=== PATIENT | male | born 1995 | race Caucasian/White ===

== ENCOUNTER 2016-10-27 18:54 | Emergency (ER) | payer BC ==
[~2016-10-27] VITALS: Ht 180.3 cm; Wt 122.6 kg
[~2016-10-27 18:54] MED LIST: CLR10 PO
[2016-10-27 19:00] VITALS: Ht 180.3 cm; Wt 122.6 kg
[2016-10-27] MEDS ORDERED: FAMOTIDINE 20MG/102 ML D5W IV STA (19:11)
[2016-10-27] MEDS ORDERED: SODIUM CHLORIDE 0.9% 1000ML 1,000 ML IV STA (19:11)
[2016-10-27] MEDS ORDERED: DiphenhydrAMINE HCL 50 MG/ML VIAL IV STA (19:11)
[2016-10-27] MEDS ORDERED: DEXAMETHASONE SOD INJ 10 MG/ML VIAL IV ONE (19:15)
[2016-10-27] MEDS ORDERED: PRED50TA PO (19:41)
[2016-10-27] MEDS ORDERED: EPP3/2 IM (19:41)
--- NOTE | 2016-10-27 19:41 | EMERGENCY ROOM VISIT NOTE ---
History Report prepared by Reggie: Demarco Bnejamin Under the Supervision of: Dr. Gerson Seth M.D. First contact with patient: 19:03 Chief Complaint: ALLERGIC REACTION Stated Complaint: THROAT WAS CLOSING, USED EPI PEN Nursing Triage Summary: on immuno therapy at home usually has an allergic reaction to it. at 1837 he used his epi pen because he had throat tightness. he callled his mom and she sent him here denies any c/o except for leg pain at injection site. History of Present Illness The patient is a 21 year old male who presents to the Emergency Room with complaints of a sudden allergic reaction beginning thirty minutes prior to arrival. He associates swelling to his lips, resolved throat tightness, and resolved hives with today's symptoms. The patient states he is on immunotherapy for seasonal allergies. He notes he has been on the three drops under the tongue regimen for nine months. He notes he normally has mild allergic reaction to the drops, and he usually takes Benadryl and goes to bed. However, the patient states he administered his EpiPen at 1837 today. He denies using his EpiPen in the past. The patient denies being on steroids. Source of History: patient Onset: 30 minutes REHAB SPECIALIST Position: other (global) Quality: other (allergic reaction) Timing: other (sudden) Note: Associated symptoms: swelling to his lips, resolved throat tightness, and resolved hives Review of Systems See HPI for pertinent positives & negatives. A total of 10 systems reviewed and were otherwise negative. Past Medical & Surgical Surgical Problems: (1) H/O left knee surgery Family History Diabetes mellitus Kidney stones Social History Smoking Status: Never Smoker Alcohol Use: occasionally Marital Status: single Housing Status: lives with roommate Occupation Status: [employer] student Current/Historical Medications Scheduled Epinephrine (Epipen 2-Panda), 1 PKT IM BLANK Prednisone (Prednisone), 50 MG PO DAILY Scheduled PRN Loratadine (Claritin), 10 MG PO DAILY PRN for ALLERGIES Allergies Coded Allergies: No Known Allergies (Unverified , 10/27/16) Physical Exam Vital Signs Date Time Temp Pulse Resp B/P Pulse Ox O2 Delivery O2 Flow Rate FiO2 10/27/16 21:00 36.7 79 18 134/71 97 10/27/16 20:56 79 18 134/71 97 Room Air 10/27/16 19:00 36.7 82 20 166/113 97 Room Air Physical Exam GENERAL: Patient is well appearing, in minimal distress, mildly anxious. HEENT: Mild swelling of upper and lower lips and tip of tongue. No acute trauma , normocephalic atraumatic, mucous membranes moist, no nasal congestion, no scleral icterus. NECK: No stridor, no adenopathy, no meningismus, trachea is midline. LUNGS: No dyspnea. Clear to auscultation and equal bilaterally. No wheeze, no rhonchi. HEART: Regular rate and rhythm. No murmurs, rubs, gallops appreciated. ABDOMEN: Soft, nontender, bowel sounds positive, no masses appreciated, no peritonitis. BACK: No midline tenderness, no CVA tenderness EXTREMITIES: Normal motion all extremities, no cyanosis, no edema. NEUROLOGIC: Alert and oriented, no acute motor or sensory deficits, no focal weakness, cranial nerves grossly intact. SKIN: No rash, no jaundice, no diaphoresis. Medical Decision & Procedures Medications Administered Medications (Trade) Dose Ordered Sig/Fausto Route Start Time Stop Time Status Last Admin Dose Admin Famotidine (Pepcid 20mg/100 ml) 20 mg ONE STAT IV 10/27/16 19:11 10/27/16 19:12 DC 10/27/16 19:25 20 MG Diphenhydramine HCl (Benadryl Inj) 50 mg NOW STAT IV 10/27/16 19:11 10/27/16 19:12 DC 10/27/16 19:23 50 MG Dexamethasone Sodium Phosphate 10 mg 10 mg NOW ONCE IV 10/27/16 19:15 10/27/16 19:16 DC 10/27/16 19:23 10 MG Sodium Chloride (Nss 1000ml) 1,000 ml @ 999 mls/hr Q1H1M STAT IV 10/27/16 19:11 10/27/16 20:11 DC 10/27/16 19:25 999 MLS/HR ED Course 1904: The patient was evaluated in room A2. A complete history and physical exam was performed. 1910: Ordered Sodium Chloride 1,000 ml @ 999 mls/hr IV, Benadryl Inj 50 mg IV, Famotidine 20 mg IV. 1914: Ordered Decadron Inj 10 mg IV. 1934: Reevaluated the patient at this time, and he is feeling well. The patient would like to go home. 2024: Reevaluated the patient. Discussed results and discharge instructions: He verbalized understanding and agreement. The patient is ready for discharge. Medical Decision Differential: Allergic Reaction, Urticaria, Anaphylaxis, De Los Santos-Tre Syndrome, Toxic Epidermal Necrolysis, Erythema Multiforme, Cellulitis, amongst other etiologies entertained. 21 yr old male arrives following episode of anaphylaxis s/p taking his allergy drops this evening. Already took epi pen with great improvement. Mild lip swelling on arrival which resolved with benadryl IV. Steroids/pepcid given. Patient monitored 2 more hours without any further issues. He is stable and in no distress requesting discharge. Has epi pen at home. Another rx sent to pharmacy for epi pens along with prednisone. Feels comfortable going home. Will contact his life sciences teacher tomorrow to discuss next step. Aware RTED if worsening or call 911. Impression Primary Impression: Anaphylaxis Scribe Attestation The scribe's documentation has been prepared under my direction and personally reviewed by me in its entirety. I confirm that the note above accurately reflects all work, treatment, procedures, and medical decision making performed by me. Departure Information Dispostion Home / Self-Care Prescriptions Epinephrine (EPIPEN 2-PANDA) 0.3 Mg Inj 1 PKT IM BLANK, #1 PKT Prov: Gerson Seth M.D. 10/27/16 Prednisone (Prednisone) 50 Mg Tab 50 MG PO DAILY for 4 Days, #4 TAB Prov: Gerson Seth M.D. 10/27/16 Referrals No Doctor, Assigned (PCP) Forms HOME CARE DOCUMENTATION FORM, IMPORTANT VISIT INFORMATION Patient Instructions ED Anaphylaxis General, [facility] Additional Instructions Do not take any more of the offending medication until cleared by your Retail Commission Sales Associate. Call them tomorrow. Problem Qualifiers Primary Impression: Anaphylaxis Encounter type: initial encounter Qualified Codes: T78.2XXA - Anaphylactic shock, unspecified, initial encounter
[2016-10-27 21:00] VITALS: BP 134/71; PULSE 79; TEMP 36.7; O2SAT 97
== END 2016-10-27 21:01 | disposition home or self-care (01) ==
LOC: C.EDB 18:56 → C.EDA 21:01
DX: T78.2XXA Anaphylactic shock, unspecified, initial encounter (principal); X58.XXXA Exposure to other specified factors, initial encounter